=== PATIENT | male | born 1980 | race African-American/Black ===

== ENCOUNTER 2016-06-18 17:22 | Emergency (ER) | payer OTHER ==
[~2016-06-18] VITALS: Ht 172.7 cm; Wt 83.9 kg
[2016-06-18 17:29] VITALS: BP 121/73
--- NOTE | 2016-06-18 17:45 | ED NECK/BACK PAIN COMPLAINT ---
History of Present Illness General Chief Complaint: Low Back Pain/Injury Stated Complaint: PER PT PULLED MUSCLE IN BACK Source: patient Exam Limitations: no limitations Vital Signs & Intake/Output Vital Signs & Intake/Output Vital Signs Date Time Temp Pulse Resp B/P Pulse O2 O2 Flow FiO2 Ox Delivery Rate 06/18 1729 97.9 74 18 121/73 98 Room Air Allergies Coded Allergies: No Known Allergies (06/18/16) Reconcile Medications Cyclobenzaprine HCl 10 MG TABLET 1 TAB PO QPM PRN MUSCLE RELAXATION Ketorolac Tromethamine 10 MG TABLET 1 TAB PO TID PRN PAIN RECEIVED im IN er Triage Note: PT TO TRIAGE WITH C/O MIDDLE BACK PAIN 02/07 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 PAIN IS GETTING WORSE. NO OTHER COMPALINTS.VSS. Triage Nurses Notes Reviewed? 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 Patient states that lumbar spine movements and upper extremity movements make worse. Denies any extremity paresthesia pain and weakness. Denies any chest pain abdominal pain and is otherwise without complaints. Patient has not taken any medications for symptoms. Past History Travel History Traveled to [place] past 21 day No Medical History Any Pertinent Medical History? none Surgical History Surgical History: non-contributory Psychosocial History What is your primary language Singaporean Tobacco Use: Current Not Daily Family History Hx Contributory? No Review of Systems Review of Systems Constitutional: Reports: no symptoms. Eyes: Reports: no symptoms. Ears, Nose, Throat, Mouth: Reports: no symptoms. Respiratory: Reports: no symptoms. Cardiovascular: Reports: no symptoms. Gastrointestinal/Abdominal: Reports: no symptoms. Musculoskeletal: Reports: see HPI, muscle pain. Skin: Reports: no symptoms. Neurological/Psychological: Reports: no symptoms. All Other Systems: Reviewed and Negative Physical Exam Physical Exam General Appearance: no apparent distress, alert Head: atraumatic Eyes: Bilateral: normal appearance. Ears, Nose, Throat, Mouth: hearing grossly normal Neck: normal inspection, supple, full range of motion Respiratory: normal breath sounds, chest non-tender, no respiratory distress Cardiovascular: regular rate/rhythm Back: normal inspection Extremities: non-tender, normal range of motion Neurologic/Psych: no motor/sensory deficits, awake, alert Skin: intact, normal color Comments: Back-normal inspection bilateral parathoracic muscular point tenderness noted, decreased active range of motion noted No central spinous tenderness Bilateral upper extremity lower extremity myotomes dermatomes intact Nontender cervical spine Nontender LUMBAR spine Progress Differential Diagnosis: C spine injury, carotid dissection, cauda equina syn, herniated disc, myofascial strain, pyelo/UTI, sciatica, spinal cord inj, thoracic outlet syn, T/L spine injury, ureterolithiasis Plan of Care: Current Medications Sig/Prem Start time Last Medication Dose Stop Time Status Admin Ketorolac 30 MG ONCE ONE 06/18 1814 UNVr Tromethamine 06/18 1815 (Toradol) Patient has nontender cervical spine and due to history of present illness and exam findings or suspicion of thoracic strain (POLLO WARNER,TANIA) Departure Departure Disposition: HOME OR SELF CARE Condition: Stable Clinical Impression Primary Impression: Back strain Referrals: LORENZA HERNANDEZ MD (PCP/Family) Additional Instructions: As discussed BEGIN ICING the area directly 20 minutes every 2 hours. Begin the prescription OF ketorolac for pain and inflammation. Begin the prescription of cyclobenzaprine for muscle relaxation. If symptoms worsen return to the emergency room. Prescriptions waiting at your pharmacy. If no better in one week follow-up with primary care doctor. Departure Forms: Customer Survey General Discharge Information Prescriptions: Current Visit Scripts Ketorolac Tromethamine 1 TAB PO TID PRN PAIN #15 TAB RECEIVED im IN er Cyclobenzaprine HCl 1 TAB PO QPM PRN MUSCLE RELAXATION #5 TAB
[2016-06-18] MEDS ORDERED: KETOROLAC TROME10 M1 PO (17:55)
[2016-06-18] MEDS ORDERED: CYCLOBENZAPRINE10 M1 PO (18:03)
== END 2016-06-18 18:16 ==
LOC: ERH 17:22
DX: S29.012A Strain of muscle and tendon of back wall of thorax, initial encounter (principal); X50.0XXA Overexertion from strenuous movement or load, initial encounter; Y93.E2 Activity, laundry
CPT/HCPCS: 96372; J1885